=== PATIENT | male | born 1935 | race Caucasian/White ===

== ENCOUNTER 2019-03-24 10:43 | Inpatient (IN) ==
[2019-03-24] MEDS ORDERED: CARDIZEM IV ONE (11:14)
--- NOTE | 2019-03-24 11:15 | PROVIDER DOCUMENTATION ---
This chart was entered by Viktoriya López Scribe, acting as scribe for Annmarie Veras MD. HPI-Cardiac General - General Chief Complaint: Palpitations Stated Complaint: A-FIB Time Seen by Provider: 03/24/19 10:54 Source: patient Allergies/Adverse Reactions: Patient Allergies Allergy/AdvReac Type Severity Reaction Status Date / Time No Known Allergies Allergy Verified 11/20/11 13:29 Home Medications: Home Medication List Medication Instructions Recorded Confirmed Last Taken Type LISINOpril [Prinivil] 40 mg PO DAILY 04/01/12 10/02/13 09/30/13 09:00 History Metoprolol [Lopressor] 25 mg PO DAILY 04/01/12 10/02/13 10/01/13 09:00 History Dronedarone [Multaq] 400 mg PO BID 04/19/13 10/02/13 10/02/13 07:00 History Warfarin [Coumadin] 7.5 mg PO QHS 04/19/13 10/02/13 10/01/13 19:00 History 7.5 MG Hydrocodone/Acetaminophen [Lortab 1 - 2 each PO Q4HR PRN #0 tablet 10/10/13 Unknown Rx 7.5-325 mg Tablet] Tamsulosin [Flomax] 0.4 mg PO DAILY #0 capsule 10/10/13 Unknown Rx - History of Present Illness-Cardiac Nature of Presenting Problem: 83yom presents to ED cc elevated heart rate, fatigue and SOB for a week. Pt reports he was seen by PCP/Dr. Velez this morning, had EKG at 1038 that showed heart rate of 170 & Afib w/RVR so he was given some meds & sent to ED. Pt repor ts he is on Warfrin, Metoprolol and Amiodorone and has missed no doses. [facility] Mendi[facility]. Pt denies CP/F. Pt has hx of Afib, HTN and aortic stenosis. Pt heart rate is 154 upon exam. Quality of Pain: reports: none Severity in ED: moderate Onset/Duration: 1 week ago Timing: still present, getting worse Context/Activities at Onset: reports: light activity Modifying Factors: improves with: nothing Palpitation Quality: fast/pounding heart beat History of arrythmia: reports: A-Fib Associated Symptoms: reports: fatigue, shortness of breath Similar Symptoms Previously?: Yes Recently Seen Here or By Another Healthcare Provider: Yes (seen at PCP/Dr. Velez today) Review of Systems - Adult - REVIEW OF SYSTEMS - ADULT Constitutional: reports: see HPI, fatique. denies: chills, fever Eyes: reports: no symptoms reported Ears, Nose, Mouth & Throat: reports: no symptoms reported Cardiovascular: reports: see HPI, irregular heart rate, palpitations, other (elevated heart rate). denies: chest pain Respiratory: reports: see HPI, shortness of breath Gastrointestinal: reports: no symptoms reported Genitourinary: reports: no symptoms reported Musculoskeletal: reports: no symptoms reported Integumentary: reports: no symptoms reported Neurological: reports: no symptoms reported Psychiatric: reports: no symptoms reported Endocrine: reports: no symptoms reported Hematologic/Lymphatic: reports: no symptoms reported Allergic/Immunologic: reports: no symptoms reported All Other Systems: Reviewed and Negative Past History - Adult - PAST MEDICAL HISTORY-ADULT Review of Records: reports: Old Records Reviewed, Nursing Assessment Review, Medications Reviewed, Social history reviewed & non-contributory. Major Childhood Illnesses: reports: denies history Cardiovascular: reports: A-Fib, HTN, other (aortic stenosis) Respiratory: reports: denies history Gastrointestinal: reports: denies history Obstetrical/Gynecological: reports: denies history Genitourinary: reports: denies history Musculoskeletal: reports: denies history Neurological: reports: denies history Endocrine/Immune: reports: denies history Other Conditions: reports: denies history - PRIOR SURGERIES/PROCEDURES Surgical/Procedure History: reports: other (aortic valve replacement) - IMMUNIZATION STATUS Childhood Immunizations: See Nurse Assessment Flu Vaccine: See Nurse Assessment - FAMILY HISTORY Family History: reviewed, not pertinent - SOCIAL HISTORY Smoking: denies Physical Exam-General - PHYSICAL EXAM-ADULT Initial Vital Signs Reviewed: Yes - CONSTITUTIONAL General Appearance: alert, no apparent distress. negative: anxious, combative - EYES Eyes: PERRL/EOMI. negative: photophobia - HEAD, EARS, NOSE, MOUTH & THROAT HENMT: normocephalic/atraumatic, moist mucous membranes. negative: angioedema - NECK Neck: supple, normal inspection - RESPIRATORY Respiratory: chest non-tender, lungs clear, normal breath sounds, no respiratory distress, other (tachypneic). negative: crackles, rales, rhonchi, stridor, wheezing - CARDIOVASCULAR Cardiovascular: normal peripheral pulses, no edema, tachycardia. negative: bradycardia - MUSCULOSKELETAL Extremity: normal inspection. negative: deformity - SKIN Integumentary: normal color, normal turgor, warm/dry. negative: diaphoresis, jaundice, rash - PSYCHIATRIC Psych/Mental Status: normal mood/affect, oriented x 3. negative: anxious, disheveled - HEART Score HEART Score: History: Moderately Suspicious HEART Score: ECG: Non-Specific Repolarization Disturbance/LBBB/PM HEART Score: Age: > or = 65 Years HEART Score: Risk Factors for Atherosclerotic Disease: > or = 3 Risk Factors or History of Atherosclerotic Disease HEART Score: Troponin: 1-3x Normal Limit Total HEART Score:: 7 Progress - PLAN OF CARE/RESULTS Progress/Plan/Lab Results: Vital Signs - 8 hr 03/24/19 11:07 03/24/19 12:31 Temperature 98.3 F Pulse Rate 161 H 141 H Respiratory Rate 30 H 15 Blood Pressure 110/90 114/76 O2 Sat by Pulse Oximetry 95 92 L Laboratory Results - last 24 hr 03/24/19 03/24/19 03/24/19 11:20 11:20 11:20 WBC 6.01 RBC 4.88 Hgb 14.6 Hct 45.0 MCV 92.2 MCH 29.9 MCHC 32.4 L RDW Std Deviation 14.0 Plt Count 230 MPV 10.2 Immature Gran % (Auto) 0.0 Neut % (Auto) 74.6 Lymph % (Auto) 17.8 L [place] % (Auto) 6.7 Eos % (Auto) 0.2 Baso % (Auto) 0.7 Immature Gran # (Auto) 0.00 Neut # (Auto) 4.49 Lymph # (Auto) 1.07 L [place] # (Auto) 0.40 Eos # (Auto) 0.01 Baso # (Auto) 0.04 PT INR PTT (Actin FS) Sodium 139 Potassium 3.8 Chloride 102 Carbon Dioxide 24 L Anion Gap 13 BUN 22 Creatinine 0.9 Estimated GFR/1.73 m2 > 60 BUN/Creatinine Ratio 24 Glucose 124 H Calculated Osmolality 282 Calcium 9.6 Total Bilirubin 0.93 AST 19 ALT 21 Alkaline Phosphatase 91 Troponin T High Sens Iwv-G-Qibjitekeia Pept 1898 H Total Protein 7.3 Albumin 4.1 Globulin 3.2 Albumin/Globulin Ratio 1.3 03/24/19 03/24/19 11:20 11:20 WBC RBC Hgb Hct MCV MCH MCHC RDW Std Deviation Plt Count MPV Immature Gran % (Auto) Neut % (Auto) Lymph % (Auto) [place] % (Auto) Eos % (Auto) Baso % (Auto) Immature Gran # (Auto) Neut # (Auto) Lymph # (Auto) [place] # (Auto) Eos # (Auto) Baso # (Auto) PT 41.8 H INR 4.19 PTT (Actin FS) 46.3 H Sodium Potassium Chloride Carbon Dioxide Anion Gap BUN Creatinine Estimated GFR/1.73 m2 BUN/Creatinine Ratio Glucose Calculated Osmolality Calcium Total Bilirubin AST ALT Alkaline Phosphatase Troponin T High Sens 18 Rxg-F-Emasxuyeorp Pept Total Protein Albumin Globulin Albumin/Globulin Ratio Orders Category Date Time Status Admit - [facility] Routine AdmDCTranf 03/24/19 12:38 Active Activity - Up with Assistance ORDERED Care 03/24/19 12:38 Active Intake and Output-Strict ORDERED Care 03/24/19 16:03 Active Nursing- Assist w/ IS as order ORDERED Care 03/24/19 16:03 Active Nursing- MD Consult Request ROUTINE Care 03/24/19 12:38 Active Update & Confirm Home Medicati ROUTINE Care 03/24/19 12:38 Active Vital Signs Order Q 4-HR ASSESS Care 03/24/19 16:03 Active Z-Document. for Tele Applied ORDERED Care 03/24/19 16:03 Active Physician/Provider Consults Routine Cons 03/24/19 12:38 Ordered Social Service Consult Routine Cons 03/24/19 16:03 Active Heart Healthy Diet Diet 03/24/19 12:38 Active CHEST-PORTABLE [RAD] Stat Exams 03/24/19 11:13 Completed CBC WITH DIFF [HEME] Q24H Lab 03/25/19 06:00 Ordered CBC WITH DIFF [HEME] Q24H Lab 03/26/19 06:00 Ordered CBC WITH DIFF [HEME] Q24H Lab 03/27/19 06:00 Ordered CBC WITH DIFF [HEME] Q24H Lab 03/28/19 06:00 Ordered CBC WITH DIFF [HEME] Q24H Lab 03/29/19 06:00 Ordered CBC WITH DIFF [HEME] Q24H Lab 03/30/19 06:00 Ordered CBC WITH DIFF [HEME] Q24H Lab 03/31/19 06:00 Ordered CBC WITH ELECTRONIC DIFF [HEME] Stat Lab 03/24/19 11:20 Completed CK PROFILE [SP CHEM] Q8H Lab 03/24/19 13:00 Completed CK PROFILE [SP CHEM] Q8H Lab 03/24/19 21:00 Ordered CK PROFILE [SP CHEM] Q8H Lab 03/25/19 05:00 Ordered COMPREHENSIVE METABOLIC PANEL [CHEM] Q24H Lab 03/25/19 06:00 Ordered COMPREHENSIVE METABOLIC PANEL [CHEM] Q24H Lab 03/26/19 06:00 Ordered COMPREHENSIVE METABOLIC PANEL [CHEM] Q24H Lab 03/27/19 06:00 Ordered COMPREHENSIVE METABOLIC PANEL [CHEM] Q24H Lab 03/28/19 06:00 Ordered COMPREHENSIVE METABOLIC PANEL [CHEM] Q24H Lab 03/29/19 06:00 Ordered COMPREHENSIVE METABOLIC PANEL [CHEM] Q24H Lab 03/30/19 06:00 Ordered COMPREHENSIVE METABOLIC PANEL [CHEM] Q24H Lab 03/31/19 06:00 Ordered COMPREHENSIVE METABOLIC PANEL [CHEM] Stat Lab 03/24/19 11:20 Completed MAGNESIUM [CHEM] Q24H Lab 03/25/19 06:00 Ordered MAGNESIUM [CHEM] Q24H Lab 03/26/19 06:00 Ordered MAGNESIUM [CHEM] Q24H Lab 03/27/19 06:00 Ordered MAGNESIUM [CHEM] Q24H Lab 03/28/19 06:00 Ordered MAGNESIUM [CHEM] Q24H Lab 03/29/19 06:00 Ordered MAGNESIUM [CHEM] Q24H Lab 03/30/19 06:00 Ordered MAGNESIUM [CHEM] Q24H Lab 03/31/19 06:00 Ordered PRO B-NATRIURETIC PEPTIDE Stat Lab 03/24/19 11:20 Completed PROTIME WITH INR [COAG] Q24H Lab 03/25/19 06:00 Ordered PROTIME WITH INR [COAG] Q24H Lab 03/26/19 06:00 Ordered PROTIME WITH INR [COAG] Q24H Lab 03/27/19 06:00 Ordered PROTIME WITH INR [COAG] Q24H Lab 03/28/19 06:00 Ordered PROTIME WITH INR [COAG] Q24H Lab 03/29/19 06:00 Ordered PROTIME WITH INR [COAG] Q24H Lab 03/30/19 06:00 Ordered PROTIME WITH INR [COAG] Q24H Lab 03/31/19 06:00 Ordered PROTIME WITH INR [COAG] Stat Lab 03/24/19 11:20 Completed PTT [COAG] Routine Lab 03/25/19 06:00 Ordered PTT [COAG] Stat Lab 03/24/19 11:20 Completed TROPONIN T HIGH SENSITIVITY Q8H Lab 03/24/19 13:00 Completed TROPONIN T HIGH SENSITIVITY Q8H Lab 03/24/19 21:00 Ordered TROPONIN T HIGH SENSITIVITY Q8H Lab 03/25/19 05:00 Ordered TROPONIN T HIGH SENSITIVITY Stat Lab 03/24/19 11:20 Completed 0.9% Sodium Chloride Inj [Ns] 1,000 ml Med 03/24/19 13:00 Active IV 75 mls/hr Acetaminophen [Tylenol] Med 03/24/19 12:38 Active 650 mg PO Q6H PRN PRN Diltiazem [Cardizem] Med 03/24/19 11:14 Discontinued 10 mg IV NOW ONE Metoprolol [Lopressor] Med 03/24/19 12:18 Discontinued 5 mg IV NOW ONE Ondansetron [Zofran] Med 03/24/19 12:38 Active 4 mg IV Q4H PRN PRN Incentive Spirometer Routine Oth 03/24/19 16:03 Active Oxygen Device Routine Oth 03/24/19 12:38 Completed Pulse Oximetry Routine Oth 03/24/19 12:38 Completed Telemetry [OM.EQ] Routine Oth 03/24/19 16:03 Active EKG [EKG] Routine Ther 03/25/19 08:00 Ordered Echo Spec/Color Doppler Routine Ther 03/24/19 12:39 Ordered Transfer/Admit Order [TRANSFER] Routine Transfer 03/24/19 12:33 Completed Patient with history of afib with uncontrolled rate. GIven cardizem and rate slightly improved but given history will admit. Spoke to Pooja GLO[employer] SALES EXECUTIVE with hospitalist who accepted patient admission, Further orders to be placed by their team. Result Diagrams: 03/24/19 11:20 03/24/19 11:20 - EKG 1 Time of EKG reading by physician:: 11:07 EKG Read and Signed by:: Annmarie Veras EKG Interpretation (*Must complete 3 of following elements*): Abnormal Rate: 164 Rhythm: afib ith rvr QRS: LBB ST Wave: non-specific ST changes - XRAY 1 XRAY: Bilateral XRAY Study: Chest Impression: See EMR Report (IMPRESSION: Pulmonary edema plus minus pneumonia with pleural effusions. Electronically signed by Farrukh Harrison 03/24/2019 11:46 AM) - CONSULTS/PCP/HOSPITALIST Notification #1 *Consult/PCP/Hospitalist*: Pooja/GLOBAL SALES EXECUTIVE Time Discussed: 12:19 Consult Disposition: Admit Departure - Departure Date of Disposition Decision: 03/24/19 Time of Disposition Decision: 12:18 DIAGNOSIS: Weakness, Shortness of breath, Chest pain Afib Qualifiers: Atrial fibrillation type: unspecified Qualified Code(s): I48.91 - Unspecified atrial fibrillation Disposition: ADMITTED INPATIENT 09 Certified Medical Emergency: Emergent Condition: Stable - Critical Care Note This patient required my direct & personal management of CC.: Yes Total Time (mins): 35 Critical Care Statement: This patient required my direct personal management to treat or rule out processes, the absence of which, could potentiallly result in sudden, clinically significant life or limb threatening deterioration. Attestation - Physician/ EDILIA Attestation Patient care was provided by Advanced Practice Provider:: No The physician spent face to face time with patient:: Yes Advanced Practice Provider documentation review:: Supervising physician onsite and consulted in the evaluation and care of this patient. The physician did have a face to face encounter with the patient. This chart was documented by the indicated scribe, (Viktoriya López Scribe) and accurately reflects the services I performed and decisions made by me, Annmarie Veras MD, as attested by the provider's signature.
[2019-03-24 11:41] LABS: BASO# 0.04 X1000 (0.0-0.2); BASO% 0.7 % (0.0-0.8); EOS# 0.01 X1000 (0.0-0.7); EOS% 0.2 % (0.0-10.0); HEMOGLOBIN 14.6 g/dL (14.0-18.0); LYMPH# 1.07 X1000 (1.2-3.4); LYMPH% 17.8 % (20.5-51.1); MCH 29.9 PG (27-31); MCHC 32.4 g/dL (33-37); MCV 92.2 FL (81-99); MONO% 6.7 % (1.7-9.3); MPV 10.2 FL (7.4-10.4); NEUT# 4.49 X1000 (1.4-6.5); NEUT% 74.6 % (42.2-75.2); PLT 230 X1000 (130-400); RBC 4.88 XMIL (4.7-6.1); WBC 6.01 X1000 (4.8-10.8)
--- NOTE | 2019-03-24 11:48 | Diag Imaging Result Doc PS360 ---
EXAM: CHEST-PORTABLE 03/24/2019 HISTORY: cp TECHNIQUE: AP portable upright at 1140 COMMENT: There are patchy alveolar opacities in the lung bases with interstitial edema and Kory B lines particularly on the left. There is blunting the costophrenic angles. None of these findings were present on 10/02/2013. IMPRESSION: Pulmonary edema plus minus pneumonia with pleural effusions. Electronically signed by Farrukh Harrison 03/24/2019 11:46 AM
[2019-03-24 11:59] LABS: AGAP 13; ALB/GLOB RATIO 1.3; ALBUMIN 4.1 g/dL (3.5-5.0); ALKALINE PHOSPHATASE 91 U/L (32-122); BUN 22 mg/dL (8-22); CALCIUM 9.6 mg/dL (8.8-10.2); CHLORIDE 102 mmol/L (98-107); COSMO 282; CREATININE 0.9 mg/dL (0.7-1.2); ESTIMATED GFR > 60; GLUCOSE 124 mg/dL (70-104); GOT 19 U/L (10-34); GPT 21 U/L (10-44); POTASSIUM 3.8 mmol/L (3.5-5.1); PTT 46.3 Seconds (22.3-41.8); SODIUM 139 mmol/L (136-145); TCO2 24 mmol/L (25-35); TOTAL BILIRUBIN 0.93 mg/dL (0.20-1.00); TOTAL PROTEIN 7.3 g/dL (6.3-8.3)
[2019-03-24 12:01] LABS: INR 4.19; PROTIME 41.8 Seconds (11.0-16.0)
[2019-03-24] MEDS ORDERED: LOPRESSOR IV ONE (12:18)
[2019-03-24] MEDS ORDERED: TYLENOL PO PRN (12:38)
[2019-03-24] MEDS ORDERED: ZOFRAN IV PRN (12:38)
[2019-03-24] MEDS ORDERED: NS 1,000 ML IV ONE (13:00)
[2019-03-24] MEDS ORDERED: CARDIZEM 100 MG/NS 100 MG/100 ML IVPB IV SCH (13:45)
--- NOTE | 2019-03-24 14:18 | EKG Report ---
Test Performed on : 03/24/2019 2:08:41 PM Test Reason : afib Blood Pressure : / mmHG Vent. Rate : 109 BPM Atrial Rate : 136 BPM P-R Int : 000 ms QRS Dur : 144 ms QT Int : 382 ms P-R-T Axes : 000 -42 110 degrees QTc Int : 514 ms Atrial fibrillation. with rapid ventricular response. with premature ventricular or aberrantly conduc rasta complexes. Left axis deviation Left bundle branch block Abnormal ECG When compared with ECG of 24-MAR-2019 11:07, (Unconfirmed) Previous ECG has undetermined rhythm, needs review Confirmed by Jasen BROWN, Bharath Reyna ([id number]) on 03/24/2019 6:03:17 PM
--- NOTE | 2019-03-24 14:19 | EKG Report ---
Test Performed on : 03/24/2019 11:07:51 AM Test Reason : AFIB Blood Pressure : / mmHG Vent. Rate : 148 BPM Atrial Rate : 163 BPM P-R Int : 000 ms QRS Dur : 150 ms QT Int : 346 ms P-R-T Axes : 035 -38 134 degrees QTc Int : 543 ms Undetermined rhythm Left axis deviation Left bundle branch block Abnormal ECG When compared with ECG of 02-OCT-2013 20:22, Current undetermined rhythm precludes rhythm comparison, needs review Left bundle branch block is now present Unconfirmed Result
--- NOTE | 2019-03-24 14:38 | HISTORY AND PHYSICAL ---
PRIMARY CARE PROVIDER: Dr. Randolph Lombardi. PRIMARY ION IMPLANT MACHINE OPERATOR: Dr. Jerez. CHIEF COMPLAINT: Fatigue, shortness of breath. HISTORY OF PRESENT ILLNESS: Mr. Conner Greer is an 83-year-old, male with a medical history of paroxysmal atrial fibrillation, hypertension, aortic valve replacement. He states that at least 2 to 3 times per year, he will have anywhere from a 15-minute to 30- minutes spell of what he calls his atrial fibrillation. He is on amiodarone and metoprolol, along with Coumadin at home. He states he has not missed any doses. He claims that he started feeling more fatigued since December. At that time, was found to have very high blood pressure at his physician's office, and some medication changes were made, and then in January, he saw Dr. Jerez, who changed him to amiodarone, but specifically over the last 10 days or 2 weeks, he has had worsening fatigue, more than usual shortness of breath with activity that causes a little bit of dizziness, he has had a mild nonproductive cough, and sleeps better with a couple pillows. He went to Dr. Lombardi's office today, who then found him to have a very high heart rate, and sent him back here. Here, he was found to be in atrial fibrillation with a rapid ventricular response, and so we will admit him for further treatment and evaluation. Will place him on a Cardizem drip, and send him to [facility]. PAST MEDICAL HISTORY: 1. Paroxysmal atrial fibrillation. 2. Hypertension. 3. BPH. PAST SURGICAL HISTORY: 1. AVR tissue valve, 02/2012. 2. Cholecystectomy. SOCIAL HISTORY: Denies tobacco, alcohol, or illicit drug use. He lives at home alone with his 2 dogs. FAMILY HISTORY: Father of a stroke and heart attack at age 73. Mother of old age at 98. ALLERGIES: No known drug allergies. HOME MEDICATIONS: Currently have not been reconciled, but verbally he told me he takes metoprolol 25 twice a day, amiodarone every day, and a specific regimen of his Coumadin. REVIEW OF SYSTEMS: A 14-point review of systems was complete, and all were negative, except for those mentioned in the above HPI. PHYSICAL EXAMINATION: VITAL SIGNS: Temperature 98.3 degrees, heart rate 131, respiratory rate 30, blood pressure 110/90, O2 saturation 95% on room air. GENERAL: Mr. Conner Greer is an 83-year-old, male. He is in no acute distress. He is able to answer questions appropriately. HEENT: Atraumatic, normocephalic. Pupils equal, round, reactive to light. Extraocular movements intact. Mucous membranes are moist. NECK: Trachea midline. CARDIOVASCULAR: Irregularly irregular. Tachycardic rate and rhythm. Trace lower extremity edema. There are +2 dorsalis and radial pulses. Negative for JVD or carotid bruits. PULMONARY: Clear to auscultate. Bilateral breath sounds. No accessory muscle use or work of breathing noted. GASTROINTESTINAL: Soft, nontender, nondistended. Positive bowel sounds x4. EXTREMITIES: Moves all extremities equally with decreased range of motion. NEUROLOGIC: A and O x3. Follows commands. Sensory is intact. SKIN: Warm, dry, intact. LABORATORY DATA: White blood cells 6000, hemoglobin 14, hematocrit 45, platelet count 230,000. INR is 4.19, PTT is 46.3. Sodium 139, potassium 3.8, BUN 22, creatinine 0.9, glucose 124, calcium 9.6. Bilirubin 0.93, AST 19, ALT 91. Troponins 18. ProBNP 1898. Albumin is 4.1. IMAGING: Chest x-ray: Pulmonary edema, plus or minus pneumonia, pleural effusions. Given his symptoms, this looks like it is more or less pulmonary edema. He does not have elevated white blood cell count. EKG has not been uploaded yet. ASSESSMENT AND PLAN: 1. Atrial fibrillation with rapid ventricular response. Cardizem drip ordered. Cardiology consulted. Cardiac enzymes ordered. Echocardiogram also ordered. 2. Possible pulmonary edema on the chest x-ray. No history of congestive heart failure, so will get an echocardiogram, and might consider starting him on some Lasix. 3. Hypertension. Continue home medications. 4. Deep venous thrombosis prophylaxis. Currently, he is on Coumadin. 5. Supratherapeutic INR. Will get daily INRs. Probably need to hold the dose of Coumadin tonight, and resume tomorrow. Still waiting for staff to verify dosing, but he says on Sunday, Sunday, and Sunday, he takes 7.5 mg, and then on the rest of the days, it is 5 mg. 6. Aortic stenosis, aware Patient seen and examined face to face, all the laboratory, vitals signs and images were reviewed, patient has a history of A. fib, he visited his Dr today and was found to have a rapid heart rate, for the past 2 weeks he has been short of breath and fatigue, in the emergency department he was found to have A fib with RVR, he was placed on cardizem drip, Cardilogy has been consulted, a new Echo was ordered, I think the last one is from 2018, probably has some heart failure, probably has some pulmonary vascular congestion, I will wait for cardiology for diuretics, I agree with the BAR ROLLER's assessment and plan, Lamonte Rodriguez MD. Dictated by DEIRDRE Calixto for Lamonte Rae MD cc: DEIRDRE Calixto MD MTDD
[2019-03-24] MEDS ORDERED: CORDARONE 150 MG/D5W 150 MG/100 ML IV.SOLN IV ONE (15:38)
[2019-03-24] MEDS ORDERED: CORDARONE 360 MG/D5W 360 MG/200 ML IV.SOLN IV ONE (15:50)
--- NOTE | 2019-03-24 16:18 | CARDIOLOGY CONSULTATION ---
DATE: 03/24/2019 REASON FOR CONSULT: Cardiology was consulted for atrial fibrillation. HISTORY OF PRESENT ILLNESS: Mr. Conner Greer is an 83-year-old gentleman with a history of paroxysmal atrial fibrillation, hypertension, aortic valve replacement, bioprosthetic aortic valve on 03/17/2012, comes with complaints of having not felt well over the last 10 days. He has been short of breath. He has been taking his medications regularly. He has at times noticed irregular pulse. He rests for some time and his pulse gets back to being normal. However, he noticed irregular pulse worsening and went to Dr. Velez's office and was noted to be in atrial fibrillation. Came to the emergency room, was started on a Cardizem drip. The patient feels better now. As far as shortness of breath is concerned, he has grade 2 dyspnea on exertion. Intermittently it has worsened. There is no paroxysmal nocturnal dyspnea. REVIEW OF SYSTEMS: A 14-point review of system was done. GI System: There is no history of nausea, vomiting, diarrhea. There is no history of hematemesis or melena. Central nervous system: No focal weakness to suggest a CVA, TIA. System: There is no dysuria or hematuria. PAST MEDICAL HISTORY: 1. Severe aortic stenosis. No obstructive coronary artery disease by left heart catheterization on 11/20/2011. 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 2. Nonrheumatic mitral valve disorder. 3. History of atrial flutter. 4. History of atrial fibrillation. 5. Anticoagulation therapy. 6. Hypertension. 7. History of pancreatitis in 2013, status post cholecystectomy. HOME MEDICATIONS: Include Coumadin as directed, tamsulosin 0.4, metoprolol 25 mg b.i.d., Norvasc 5 mg a day. ALLERGIES: He is not known to be allergic to any medication. SOCIAL HISTORY: Patient does not smoke. There is no history of alcohol abuse. PHYSICAL EXAMINATION: Vital Signs: Blood pressure was 110/90. Cardiovascular system: First and second heart sounds were heard. There was no S3 gallop. Respiratory System: Distant breath sounds. Normal air entry. A few scattered crepitations. Abdomen: Soft, nontender. There was no guarding or rigidity. Bowel sounds were heard. Central nervous system: Alert and oriented. Was moving all 4 extremities. Extremities: Examination of extremities revealed no pedal edema. HEENT: Atraumatic, normocephalic. Pupils were equal and reacting to light. LABORATORY: WBC 6,000, hemoglobin 14, hematocrit 45, platelet count of 230,000. INR is 4.1. Sodium 139, potassium 3.8, BUN 22, creatinine 0.9. Chest x-ray: Pulmonary edema. ASSESSMENT AND PLAN: Mr. Conner Greer is an 83-year-old gentleman with a history of paroxysmal atrial fibrillation, on anticoagulation therapy, severe aortic stenosis, status post bioprosthetic aortic valve, was recently seen on our office and was in sinus rhythm then. Has episodes of palpitations. Now had increasing palpitations with shortness of breath. He has mild congestive heart failure as well. He was started on a Cardizem drip. PLAN: 1. We will discontinue the Cardizem drip and start him on amiodarone. He has had paroxysmal atrial fibrillation and he is symptomatic when he, I believe, has gone into atrial fibrillation. We will start him on IV amiodarone. Discontinue the IV Cardizem. 2. In the morning we will get an echocardiogram to reassess cardiac and valvular function. He has had a bioprosthetic aortic valve replacement. He also had nonrheumatic mitral stenosis by echocardiogram in 2018 his ejection fraction at that time was 70%. We will make sure there is no worsening of his mitral stenosis as well. 3. As far as his anticoagulation therapy, he is on Coumadin. INR was 4. Given the fact that we are going to start him on amiodarone, his INR is likely to be elevated and we will check it on a daily basis and we will decrease his Coumadin levels so that we adjust his INR to be therapeutic between 2.4 and 3 INR. 4. Heart failure, probably secondary to his atrial fibrillation. We will give him Lasix 40 mg. 5. Hypertension. He has been taking Norvasc at home in addition to beta blockers. I have not made any changes at the present time. cc: Hari Marks MD
[2019-03-24] MEDS: LASIX IV SCH (17:14)
[2019-03-25] MEDS: CORDARONE 540 MG in D5W 289.2 ML IV ONE ×2 (00:39→00:46)
--- NOTE | 2019-03-25 00:41 | EKG Report ---
Test Performed on : 03/24/2019 11:47:06 PM Test Reason : Rythem change Blood Pressure : / mmHG Vent. Rate : 065 BPM Atrial Rate : 065 BPM P-R Int : 180 ms QRS Dur : 158 ms QT Int : 500 ms P-R-T Axes : 057 -05 103 degrees QTc Int : 520 ms Sinus rhythm. with premature supraventricular complexes. Possible Left atrial enlargement Left bundle branch block Abnormal ECG When compared with ECG of 24-MAR-2019 23:46, (Unconfirmed) premature supraventricular complexes. are now present Confirmed by Jasen BROWN, Bharath Reyna ([id number]) on 03/25/2019 7:24:33 AM
[2019-03-25 06:23] LABS: BASO# 0.02 X1000 (0.0-0.2); BASO% 0.2 % (0.0-0.8); EOS# 0.02 X1000 (0.0-0.7); EOS% 0.2 % (0.0-10.0); HEMATOCRIT 46.3 % (42.0-52.0); LYMPH% 10.4 % (20.5-51.1); MCH 29.9 PG (27-31); MCHC 32.4 g/dL (33-37); MCV 92.2 FL (81-99); MONO# 0.61 X1000 (0.11-0.59); MONO% 7.1 % (1.7-9.3); MPV 10.4 FL (7.4-10.4); NEUT# 7.08 X1000 (1.4-6.5); NEUT% 82.1 % (42.2-75.2); PLT 241 X1000 (130-400); RBC 5.02 XMIL (4.7-6.1); WBC 8.63 X1000 (4.8-10.8)
[2019-03-25 06:31] LABS: INR 4.4; PROTIME 43.5 Seconds (11.0-16.0)
[2019-03-25 06:32] LABS: PTT 49.1 Seconds (22.3-41.8)
[2019-03-25 06:50] LABS: AGAP 15; ALBUMIN 3.8 g/dL (3.5-5.0); ALKALINE PHOSPHATASE 94 U/L (32-122); BUN 24 mg/dL (8-22); CALCIUM 9.1 mg/dL (8.8-10.2); CHLORIDE 104 mmol/L (98-107); COSMO 287; CREATININE 0.9 mg/dL (0.7-1.2); ESTIMATED GFR > 60; GLUCOSE 126 mg/dL (70-104); GOT 22 U/L (10-34); GPT 20 U/L (10-44); MAGNESIUM 2.1 mg/dL (1.5-2.7); POTASSIUM 4.2 mmol/L (3.5-5.1); SODIUM 141 mmol/L (136-145); TCO2 22 mmol/L (25-35); TOTAL BILIRUBIN 0.97 mg/dL (0.20-1.00); TOTAL PROTEIN 7.6 g/dL (6.3-8.3)
[2019-03-25 07:31] LABS: CK INDEX 2.4 (0.0-2.5); CK-MB 6.19 ng/mL (0.0-5.0)
--- NOTE | 2019-03-25 07:42 | EKG Report ---
Test Performed on : 03/25/2019 07:01:09 AM Test Reason : afib Blood Pressure : / mmHG Vent. Rate : 064 BPM Atrial Rate : 064 BPM P-R Int : 154 ms QRS Dur : 156 ms QT Int : 496 ms P-R-T Axes : 046 -02 104 degrees QTc Int : 511 ms Normal sinus rhythm. Possible Left atrial enlargement Left bundle branch block Abnormal ECG When compared with ECG of 24-MAR-2019 23:47, premature supraventricular complexes. are no longer present Confirmed by Jasen BROWN, Bharath Reyna ([id number]) on 03/27/2019 7:28:34 AM
[2019-03-25] MEDS: LASIX IV SCH (08:11)
--- NOTE | 2019-03-25 10:45 | PROGRESS NOTE ---
DATE: 03/25/2019 SUBJECTIVE: Patient reports feeling fine. Denies any palpitations, chest pain, or chest pressure. OBJECTIVE: Vital Signs: Temperature 97.8 degrees, heart rate 71, respiratory rate 23, blood pressure 183/88, O2 saturation 95% on 4 L nasal cannula. General Examination: This is an 83-year- old, male, lying in bed, in no acute distress. Cardiovascular Examination: Irregularly irregular heart rhythm. Tachycardic. No murmurs, gallops, or rubs. Respiratory Examination: Clear bilaterally to auscultation. No work of breathing or using accessory muscles. Abdomen: Soft. Nontender to palpation. Bowel sounds present. No organomegaly. Extremities: No clubbing, cyanosis, or edema. Peripheral pulses present in both legs. Neurological Examination: The patient is alert and oriented x3. Moves 4 extremities. Laboratory Data: INR is 4.4. Normal BMP. X-ray from yesterday showed pulmonary edema plus/minus pneumonia with pleural effusion. ASSESSMENT AND PLAN: 1. Atrial fibrillation with rapid ventricular response. Currently, this patient has been placed on an amiodarone drip. Heart rate is definitely much better controlled. We will continue with the same management. Echocardiogram has been ordered. Cardiology following this patient. 2. Pulmonary edema. Patient has been started on Lasix 40 mg intravenous every 12 hours. We will continue with the same management. 3. Hypertension. Blood pressure is under control. We will continue with the same medications. 4. Deep vein thrombosis prophylaxis. Patient is on Coumadin. 5. Supratherapeutic INR. Warfarin dose has be changed by cardiology. We will continue to check INR on a daily basis. 6. Disposition. We will continue to monitor this patient closely. Following lead from cardiology. cc: Dilan Salazar MD
[2019-03-25] MEDS: NORVASC PO SCH ×2 (12:03→20:16)
[2019-03-25] MEDS: FLOMAX PO SCH (20:16)
[2019-03-25] MEDS ORDERED: COUMADIN PO SCH (21:00)
--- NOTE | 2019-03-25 22:54 | ECHO REPORT ---
ORDER DATE: 03/24/2019 MEASUREMENTS: Septal thickness 1.0, left ventricular internal diameter in diastole 4.3, posterior wall thickness 0.9. Left ventricular internal diameter in systole 2.6. Aortic root 3.1, left atrium 3.6. SUMMARY: 1. Technically difficult study due to limited acoustic window quality. 2. 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 Peak gradient across aortic valve is 31 mmHg with a mean gradient of 15 mmHg. Values are consistent with adequate prosthetic valve function. Aortic regurgitation cannot be appreciated. Mitral annular calcification is demonstrated with moderately heavy thickening and calcification of mitral valve leaflets demonstrated. There is reduced mobility of mitral valve leaflets. Peak gradient across the mitral valve is 25 mmHg with a mean gradient 10 mmHg. The calculated mitral valve area by pressure halftime method is 2.4 cm2. Moderate mitral stenosis is suggested. There is moderate mitral regurgitation. Tricuspid and pulmonic valves are without evidence of structural abnormality with moderate tricuspid regurgitation and mild pulmonic insufficiency. The estimated systolic PA pressure by Doppler is 78 mmHg suggesting moderate to severe pulmonary hypertension. Aortic root is normal size. 3. Normal left ventricular dimension suggested on 2-dimensional images. Estimated left ejection fraction appears to be at least 60%. No regional wall abnormalities evident. Left atrium is mildly enlarged on 2-dimensional images. The right atrium and right ventricle are normal size with grossly preserved right ventricular systolic function. 4. No pericardial effusion. 5. Appearance of inferior vena cava suggests normal central venous pressure. CONCLUSIONS: 1. Technically difficult study. 2. Aortic valve bioprosthesis functioning adequately by Doppler. 3. Moderate mitral stenosis with mild to moderate mitral regurgitation. 4. Mild tricuspid regurgitation with moderate to severe pulmonary hypertension by Doppler. 5. Estimated left ejection fraction at least 60%. 6. Mild left atrial enlargement. cc: MD Pooja Garcia CRNP
[2019-03-26 06:11] LABS: INR 3.43; PROTIME 35.7 Seconds (11.0-16.0)
[2019-03-26 06:15] LABS: BASO# 0.03 X1000 (0.0-0.2); BASO% 0.5 % (0.0-0.8); EOS# 0.05 X1000 (0.0-0.7); EOS% 0.9 % (0.0-10.0); HEMATOCRIT 41.1 % (42.0-52.0); HEMOGLOBIN 13.5 g/dL (14.0-18.0); LYMPH# 1.24 X1000 (1.2-3.4); LYMPH% 21.7 % (20.5-51.1); MCH 30.1 PG (27-31); MCHC 32.8 g/dL (33-37); MCV 91.5 FL (81-99); MONO% 12.3 % (1.7-9.3); MPV 10.6 FL (7.4-10.4); NEUT# 3.69 X1000 (1.4-6.5); NEUT% 64.6 % (42.2-75.2); PLT 205 X1000 (130-400); RBC 4.49 XMIL (4.7-6.1); RDW 13.8 % (11.5-14.5); WBC 5.71 X1000 (4.8-10.8)
[2019-03-26 06:20] LABS: AGAP 16; ALB/GLOB RATIO 1.4; ALBUMIN 3.6 g/dL (3.5-5.0); ALKALINE PHOSPHATASE 80 U/L (32-122); BUN 30 mg/dL (8-22); CALCIUM 8.4 mg/dL (8.8-10.2); CHLORIDE 103 mmol/L (98-107); COSMO 286; CREATININE 0.9 mg/dL (0.7-1.2); ESTIMATED GFR > 60; GLUCOSE 101 mg/dL (70-104); GOT 28 U/L (10-34); GPT 19 U/L (10-44); MAGNESIUM 2.1 mg/dL (1.5-2.7); POTASSIUM 3.7 mmol/L (3.5-5.1); SODIUM 140 mmol/L (136-145); TCO2 21 mmol/L (25-35); TOTAL BILIRUBIN 1.33 mg/dL (0.20-1.00); TOTAL PROTEIN 6.2 g/dL (6.3-8.3)
--- NOTE | 2019-03-26 07:04 | PROGRESS NOTE ---
DATE: 03/26/2019 SUBJECTIVE: Patient reports feeling fine. Denies any palpitations, chest pain, or shortness of breath. OBJECTIVE: Vital Signs: Temperature 98.2, heart rate 145, respiratory 24, blood pressure 144/88. O2 saturation 92% on 4 L nasal cannula. General: This is an 83-year-old male lying in bed in no acute distress. Cardiovascular: Irregularly irregular and tachycardic. No murmurs, gallops, or rubs. Respiratory: Clear bilaterally to auscultation. No work of breathing or using accessory muscles. Abdomen: Soft. Nontender to palpation. Bowel sounds present. No organomegaly. Extremities: No clubbing, cyanosis, or edema. Peripheral pulses present in both legs. Neurological: The patient is alert and oriented x3. Moves all 4 extremities. LABORATORY DATA: Reviewed. ASSESSMENT AND PLAN: 1. Atrial fibrillation with rapid ventricular response. We will continue with amiodarone at this time, and has been changed to 3 to 4 p.o. We will continue with the rest of current medications. 2. Pulmonary edema. We will continue with Lasix. We will check an x-ray today. 3. Hypertension. Blood pressure is under control. We will continue with same management. 4. Deep vein thrombosis prophylaxis. Patient is on Coumadin. 5. Supratherapeutic INR. Labs are still pending. 6. Disposition. We will continue to monitor this patient closely. cc: Dilan Salazar MD
[2019-03-26] MEDS ORDERED: LANOXIN IV ONE ×2 (07:40→10:04)
[2019-03-26] MEDS: NORVASC PO SCH ×2 (08:00→21:27)
[2019-03-26] MEDS: LASIX IV SCH (08:00)
[2019-03-26] MEDS: CORDARONE PO SCH ×2 (08:00→21:27)
--- NOTE | 2019-03-26 09:00 | Diag Imaging Result Doc PS360 ---
CHEST-PORTABLE - 03/26/2019 INDICATION: dyspnea COMPARISON: 03/24/2019 FINDINGS: Stable sternotomy changes. Stable borderline cardiomegaly. Stable diffuse bilateral interstitial infiltrates compatible with pulmonary edema. There is worsening in the left basilar pleural effusion which is still small in size. There is probably also a small right pleural effusion. IMPRESSION: Increasing left basilar pleural effusion. Electronically signed by Dwight Hurd 03/26/2019 8:58 AM
--- NOTE | 2019-03-26 09:23 | EKG Report ---
Test Performed on : 03/26/2019 09:09:19 AM Test Reason : afib rvr Blood Pressure : / mmHG Vent. Rate : 150 BPM Atrial Rate : 153 BPM P-R Int : 000 ms QRS Dur : 140 ms QT Int : 340 ms P-R-T Axes : 000 -38 122 degrees QTc Int : 537 ms Critical Test Result: High HR Atrial fibrillation. with rapid ventricular response. Left axis deviation Left bundle branch block Abnormal ECG When compared with ECG of 25-MAR-2019 07:01, (Unconfirmed) Atrial fibrillation. has replaced Sinus rhythm. Vent. rate has increased BY 86 BPM T wave inversion more evident in Lateral leads Confirmed by Jasen BROWN, Bharath Reyna ([id number]) on 03/27/2019 7:30:28 AM
[2019-03-26] MEDS ORDERED: CORDARONE 360 MG/D5W 360 MG/200 ML IV.SOLN IV ONE (12:00)
[2019-03-26] MEDS ORDERED: CORDARONE 540 MG in D5W 289.2 ML IV ONE (18:00)
[2019-03-26] MEDS ORDERED: COUMADIN PO SCH (21:00)
[2019-03-26] MEDS: FLOMAX PO SCH (21:27)
--- NOTE | 2019-03-27 06:32 | PROGRESS NOTE ---
DATE: 03/27/2019 SUBJECTIVE: Patient reports feeling fine. No short of breath. No palpitations. No chest pain. OBJECTIVE: Vital Signs: Temperature 98.4 degrees, heart rate 98, respiratory rate 20, blood pressure 127/68, O2 saturation 95% on 3 L nasal cannula. General Examination: This is an 83-year- old male, lying in bed, in no acute distress. Cardiovascular: Irregularly irregular and tachycardic heart rhythm. No murmurs, gallops, or rubs noted. Respiratory: Decreased breath sounds in the left base. The patient is not using any accessory muscles or having work of breathing. Abdomen: Soft, nontender to palpation. Nondistended. Bowel sounds present. No organomegaly. Extremities: No clubbing, cyanosis, or edema. Peripheral pulses present in both legs. Neurological: Patient is alert and oriented x3. Moves 4 extremities. LABORATORY DATA: Pending at the time of dictation. ASSESSMENT AND PLAN: 1. Atrial fibrillation with rapid ventricular response. The patient continues to be on amiodarone drip. Heart rate has been between 98 and 110 at maximum. Clinically, this patient is not complaining of any palpitation. We will continue with the same management. Cardiology following this patient. We will follow recommendations. 2. Pulmonary edema. X-ray from yesterday shows increasing left basilar pleural effusion although it is still small. At this point, we will continue with Lasix 40 mg IV daily. We will monitor ins and outs strictly. Will check an x-ray tomorrow and see how he does. 3. Hypertension. Blood pressure is under control. We will continue with the same medications. 4. Deep vein thrombosis prophylaxis. Patient is already on Coumadin. 5. Supratherapeutic INR. The INR has been a little bit higher 2.8 yesterday. Labs are still pending from today. 6. Disposition. We will continue to monitor this patient closely in [facility]. cc: Dilan Salazar MD
[2019-03-27 06:41] LABS: AGAP 12; ALB/GLOB RATIO 1.1; ALBUMIN 3.6 g/dL (3.5-5.0); ALKALINE PHOSPHATASE 78 U/L (32-122); BUN 28 mg/dL (8-22); CHLORIDE 102 mmol/L (98-107); COSMO 283; CREATININE 0.9 mg/dL (0.7-1.2); ESTIMATED GFR > 60; GLUCOSE 106 mg/dL (70-104); GOT 24 U/L (10-34); GPT 18 U/L (10-44); MAGNESIUM 2.1 mg/dL (1.5-2.7); POTASSIUM 3.4 mmol/L (3.5-5.1); SODIUM 139 mmol/L (136-145); TCO2 25 mmol/L (25-35); TOTAL BILIRUBIN 1.23 mg/dL (0.20-1.00)
[2019-03-27 06:44] LABS: BASO# 0.02 X1000 (0.0-0.2); BASO% 0.3 % (0.0-0.8); EOS# 0.06 X1000 (0.0-0.7); HEMOGLOBIN 14.1 g/dL (14.0-18.0); LYMPH# 1.32 X1000 (1.2-3.4); MCH 30.3 PG (27-31); MCHC 32.8 g/dL (33-37); MCV 92.3 FL (81-99); MONO# 0.76 X1000 (0.11-0.59); MONO% 12.7 % (1.7-9.3); MPV 10.4 FL (7.4-10.4); NEUT# 3.84 X1000 (1.4-6.5); PLT 199 X1000 (130-400); RBC 4.66 XMIL (4.7-6.1); RDW 13.8 % (11.5-14.5)
[2019-03-27 07:07] LABS: INR 2.15; PROTIME 24.5 Seconds (11.0-16.0)
--- NOTE | 2019-03-27 07:26 | EKG Report ---
Test Performed on : 03/27/2019 06:45:23 AM Test Reason : afib Blood Pressure : / mmHG Vent. Rate : 099 BPM Atrial Rate : 060 BPM P-R Int : 000 ms QRS Dur : 156 ms QT Int : 416 ms P-R-T Axes : 000 -34 122 degrees QTc Int : 533 ms Atrial fibrillation. Left axis deviation Left bundle branch block Abnormal ECG When compared with ECG of 26-MAR-2019 09:09, (Unconfirmed) Vent. rate has decreased BY 51 BPM Confirmed by Jasen BROWN, Bharath Reyna ([id number]) on 03/27/2019 7:31:38 AM
[2019-03-27] MEDS: NORVASC PO SCH ×2 (08:42→20:42)
[2019-03-27] MEDS: LASIX IV SCH ×2 (08:43→14:52)
[2019-03-27] MEDS: CORDARONE PO SCH ×2 (08:43→20:42)
[2019-03-27] MEDS ORDERED: XYLOCAINE-MPF 1% 5 ML ONE (10:41)
[2019-03-27] MEDS ORDERED: DIPRIVAN 1% ONE (10:41)
[2019-03-27] MEDS ORDERED: NS 1,000 ML ONE (10:50)
[2019-03-27] MEDS ORDERED: ANESTHESIA PB SET 88 IN 5742 ONE (10:50)
[2019-03-27] MEDS ORDERED: LOPRESSOR IV PRN (11:12)
--- NOTE | 2019-03-27 11:29 | OPERATIVE NOTE ---
PROCEDURE DATE: 03/27/2019 PROCEDURE: Cardioversion INDICATIONS: The patient was brought to the cardiac catheterization laboratory for cardioversion. The patient had been having atrial fibrillation with rapid ventricular rate. He is on amiodarone drip. Informed consent was obtained. DETAILS OF PROCEDURE: The patient was anesthetized. Please see detailed anesthesia records. He was given propofol. The patient's cardioversion was attempted with synchronized 100 joules. Patient transiently went into sinus rhythm and went into atrial fibrillation with rapid ventricular rate. Subsequently synchronized cardioversion was attempted with 200 joules. Patient transiently went into normal sinus rhythm and back into atrial fibrillation with rapid ventricular rate. IMPRESSION: Failed cardioversion. Patient persists in atrial fibrillation with rapid ventricular rate. cc: Hari Marks MD
[2019-03-27] MEDS ORDERED: CORDARONE 540 MG in D5W 289.2 ML IV ONE (12:00)
[2019-03-27] MEDS: LOPRESSOR PO SCH ×2 (14:52→20:42)
[2019-03-27] MEDS ORDERED: AMBIEN PO PRN (16:24)
[2019-03-27] MEDS: FLOMAX PO SCH (20:42)
[2019-03-27] MEDS ORDERED: COUMADIN PO SCH (21:00)
[2019-03-28 07:05] LABS: BASO# 0.02 X1000 (0.0-0.2); BASO% 0.3 % (0.0-0.8); EOS# 0.04 X1000 (0.0-0.7); EOS% 0.7 % (0.0-10.0); HEMATOCRIT 40.6 % (42.0-52.0); HEMOGLOBIN 13.2 g/dL (14.0-18.0); IMM GRAN# 0.02 X1000 (0.0-0.04); IMM GRAN% 0.3 % (0.0-0.5); LYMPH# 1.13 X1000 (1.2-3.4); LYMPH% 18.6 % (20.5-51.1); MCH 29.9 PG (27-31); MCHC 32.5 g/dL (33-37); MCV 91.9 FL (81-99); MONO% 11.5 % (1.7-9.3); MPV 10.9 FL (7.4-10.4); NEUT# 4.16 X1000 (1.4-6.5); NEUT% 68.6 % (42.2-75.2); PLT 194 X1000 (130-400); RBC 4.42 XMIL (4.7-6.1); RDW 13.5 % (11.5-14.5); WBC 6.07 X1000 (4.8-10.8)
[2019-03-28 07:13] LABS: INR 1.8; PROTIME 21.3 Seconds (11.0-16.0)
--- NOTE | 2019-03-28 07:16 | PROGRESS NOTE ---
DATE: 03/28/2019 SUBJECTIVE: Patient reports feeling fine. Still having some palpitations on and off. No shortness of breath. OBJECTIVE: Vital Signs: Temperature 97.8 degrees, heart rate 72, respiratory rate 14, blood pressure 111/62, O2 saturation 95% on 2 L nasal cannula. General: This is an 83-year-old male, lying in bed, in no acute distress. Cardiovascular: Irregularly irregular and tachycardic heart rhythm. No murmurs, gallops, or rubs noted. Respiratory: Decreased breath sounds in the left base. The patient is not using any accessory muscles or having work of breathing. Abdomen: Soft, nontender to palpation. Nondistended. Bowel sounds present. No organomegaly. Extremities: No clubbing, cyanosis, or edema. Peripheral pulses present in both legs. Neurological: Patient alert and oriented x3. Moves 4 extremities. LABORATORY DATA: Pending at the time of dictation. ASSESSMENT AND PLAN: 1. Atrial fibrillation with rapid ventricular response. Unfortunately, this patient failed cardioversion. Heart rate has been up and down. At this point, we are going to provide amiodarone to this patient to at least have 5 g in her system. We will try to do cardioversion on Sunday but ultimately if this patient fails that procedure again, according to Cardiology, they are planning to transfer this patient to Electrophysiology service. At this point, we will continue to monitor. 2. Pulmonary edema. We will continue with Lasix 40 mg IV q.24 hours. We will check an x-ray between tomorrow and the day after. 3. Hypertension. Blood pressure is under control. We will continue with same management. 4. Deep venous thrombosis prophylaxis. Patient is already on Coumadin 5. Supratherapeutic INR. INR is still not available. We will adjust his medication accordingly. 6. Disposition. We will continue to monitor this patient closely here in the in the PVC unit. cc: Dilan Salazar MD
[2019-03-28 07:34] LABS: AGAP 13; ALB/GLOB RATIO 1.1; ALBUMIN 3.3 g/dL (3.5-5.0); ALKALINE PHOSPHATASE 70 U/L (32-122); BUN 23 mg/dL (8-22); CALCIUM 8.6 mg/dL (8.8-10.2); CHLORIDE 102 mmol/L (98-107); COSMO 283; CREATININE 0.8 mg/dL (0.7-1.2); ESTIMATED GFR > 60; GLUCOSE 97 mg/dL (70-104); GOT 18 U/L (10-34); GPT 15 U/L (10-44); POTASSIUM 3.3 mmol/L (3.5-5.1); SODIUM 140 mmol/L (136-145); TCO2 25 mmol/L (25-35); TOTAL BILIRUBIN 1.07 mg/dL (0.20-1.00); TOTAL PROTEIN 6.4 g/dL (6.3-8.3)
--- NOTE | 2019-03-28 07:34 | EKG Report ---
Test Performed on : 03/28/2019 06:15:15 AM Test Reason : afib with rvr Blood Pressure : / mmHG Vent. Rate : 080 BPM Atrial Rate : 065 BPM P-R Int : 000 ms QRS Dur : 166 ms QT Int : 480 ms P-R-T Axes : 000 -39 121 degrees QTc Int : 553 ms Atrial fibrillation. Left axis deviation Left bundle branch block Abnormal ECG When compared with ECG of 27-MAR-2019 06:45, No significant change was found Confirmed by Jasen BROWN, Bharath Reyna ([id number]) on 03/30/2019 9:22:41 AM
[2019-03-28] MEDS: NORVASC PO SCH (08:35)
[2019-03-28] MEDS: CORDARONE PO SCH (08:36)
[2019-03-28] MEDS: LOPRESSOR PO SCH (08:36)
[2019-03-28] MEDS: LASIX IV SCH (08:36)
[2019-03-28] MEDS ORDERED: CORDARONE PO SCH (09:00)
[2019-03-28 12:05] VITALS: BP 137/70
--- NOTE | 2019-03-28 15:03 | DISCHARGE SUMMARY ---
ADMISSION DATE: 03/24/2019 DISCHARGE DATE: 03/28/2019 DISCHARGE DIAGNOSES: 1. Atrial fibrillation with rapid ventricular response, improved. 2. Pulmonary edema. 3. Hypertension. 4. Supratherapeutic INR, improved. 5. Aortic stenosis aware. CONSULTATIONS: Dr. Marks from Cardiology. PROCEDURES: 1. Chest x-ray done on admission showed pulmonary edema plus minus pneumonia with pleural effusion. 2. Echocardiogram Doppler showed an aortic valve bioprosthesis functioning adequately by Doppler with ejection fraction estimated of at least 60% with mild left atrial enlargement. Moderate mitral stenosis with mild to moderate mitral regurgitation. 3. Cardioversion performed on 03/27/[address] Marks failed. The patient persisted in atrial fibrillation with rapid ventricular rate. HOSPITAL COURSE: This is an 83-year-old, male with a past medical history of paroxysmal atrial fibrillation, hypertension, and aortic valve replacement who presented to the emergency department with palpitations. He reports that 2 to 3 times per year he has worsening atrial fibrillation. He is on amiodarone and Toprol. He is on Coumadin as well. He went to his primary care office where he was found to have a vague heart rate so he was sent to the emergency department. He was admitted to the hospital for this condition. He was placed on Cardizem drip and sent into [facility]. Here, we continued with the drip. Cardiology has been consulted. They decided to place him on amiodarone drip and cardiovert this patient. Unfortunately, that was not successful. Then, we decided to continue with high doses of amiodarone and observe how he was doing. Fortunately, his catheter has been much better controlled so as per Cardiology recommendations we are going to send this patient home with oral medications including metoprolol and amiodarone. He is going to be seen in the office by Dr. Jerez next week for a possible cardioversion as an outpatient. If not, he may need to have an ablation. DISCHARGE PHYSICAL EXAMINATION: Vital Signs: Temperature 97.8 degrees, heart rate 71, respiratory 14, blood pressure 137/70, and O2 saturation 95% on room air. General: This is a 89-year-old male lying in bed in no acute distress. Cardiovascular: Irregularly irregular heart rhythm. No murmurs, gallops, or rubs. Respiratory: Clear bilaterally to auscultation. No work of breathing or using accessory muscles. Abdomen: Soft. Nontender to palpation. Bowel sounds present. No organomegaly. Extremities: No clubbing, cyanosis, or edema. Peripheral pulses present in both legs. Neurological: The patient is alert and oriented x3. Moves all 4 extremities. DISCHARGE DISPOSITION: Patient is going to be seen by Dr. Jerez from Cardiology as already scheduled. DISCHARGE MEDICATIONS: 1. Metoprolol 50 mg 1 tablet p.o. b.i.d. 2. Furosemide 20 mg 1 tablet p.o. daily. 3. Amiodarone 400 mg p.o. b.i.d. 4. Warfarin 5 mg 1 tablet p.o. at bedtime. 5. Amlodipine 5 mg 1 tablet p.o. daily. 6. Tamsulosin 0.4 mg 1 tablet p.o. daily. TIME SPENT: Time discharging the patient was 33 minutes. cc: Dilan Salazar MD
== END 2019-03-28 15:04 | disposition home or self-care (01) | DRG 308 ==
LOC: ED 10:43 → EDIPHOLD 12:43 → SUATTDRO 12:43 → 2N 19:10
PROVIDERS: ATTEND Internal Medicine